=== PATIENT | male | born 2000 | race Two or more races ===

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

== ENCOUNTER 2023-10-21 20:39 | Emergency (ER) | payer MEDICAID, OTHER ==
[~2023-10-21] VITALS: Ht 167.6 cm; Wt 74.8 kg
[2023-10-21] MEDS ORDERED: LIDOCAINE 1%-EPI 1:100,000 20 ML VIAL ONE (21:28)
[2023-10-21] MEDS ORDERED: SULF1TAB48 PO (22:08)
[2023-10-21] MEDS ORDERED: SULFAMETH/TRIMETH 800/160 MG 1 UDTAB TABLET ONE (22:12)
[2023-10-21] MEDS: SULFAMETH/TRIMETH 800/160 MG 1 UDTAB TABLET PO ONE (22:15)
[2023-10-21 22:17] VITALS: BP 154/93; TEMP 98.2; O2SAT 98
== END 2023-10-21 22:18 | disposition home or self-care (01) ==
LOC: ER 20:49
DX: L02.416 Cutaneous abscess of left lower limb (principal); Z88.6 Allergy status to analgesic agent
CPT/HCPCS: 99283; 10060; A6403 ×2; J3490